=== PATIENT | female | born 1980 | race Caucasian/White ===

== ENCOUNTER 2021-09-14 07:19 | Emergency (ER) | payer BC ==
[~2021-09-14] VITALS: Ht 149.9 cm; Wt 90.9 kg
[2021-09-14] MEDS ORDERED: FAMO20TA PO (07:31)
[2021-09-14] MEDS ORDERED: LISI20TA35 PO (07:31)
[2021-09-14] MEDS ORDERED: [UNRECOGNIZED DRUG - CODE] SQ (07:31)
[2021-09-14] MEDS ORDERED: OMEP-173 PO (07:31)
[2021-09-14] MEDS ORDERED: CETI-24 PO (07:31)
[2021-09-14 07:58] LABS: BASO % 0.3 % (0.0-1.0); EOS # 0.1 10^3/uL (0.0-0.5); HEMATOCRIT 38.3 % (36.0-47.0); HEMOGLOBIN 12.9 g/dl (12.0-15.5); LYMPH # 0.5 10^3/uL (1.5-5.0); LYMPH % 3.6 % (24.0-44.0); MEAN CORPUSCULAR HEMOGLOBIN 30.1 pg (27.0-33.0); MEAN CORPUSCULAR HGB CONC 33.7 g/dl (32.0-36.5); MEAN CORPUSCULAR VOLUME 89.5 fl (80.0-96.0); MONO # 0.2 10^3/uL (0.0-0.8); MONO % 1.6 % (2.0-8.0); NEUTROPHILS % 93.2 % (36.0-66.0); PLATELET COUNT, AUTOMATED 243 10^3/uL (150-450); RED BLOOD COUNT 4.28 10^6/uL (4.00-5.40); WHITE BLOOD COUNT 12.9 10^3/uL (4.0-10.0)
[2021-09-14] MEDS ORDERED: NS 1,000 ML IV ONE (08:10)
[2021-09-14] MEDS ORDERED: KETOROLAC 30 MG/ML 1ML VIAL IV ONE (08:10)
[2021-09-14] MEDS ORDERED: ONDANSETRON 4MG/2ML VIAL IV ONE (08:10)
[2021-09-14 08:21] LABS: HCG, SERUM QUALITATIVE NEGATIVE (NEGATIVE)
[2021-09-14 08:24] LABS: ALBUMIN 4.4 GM/DL (3.2-5.2); ALT/SGPT 41 U/L (12-78); BILIRUBIN,DIRECT < 0.1 MG/DL (0.0-0.2); BILIRUBIN,TOTAL 0.4 MG/DL (0.2-1.0); BLOOD UREA NITROGEN 24 MG/DL (7-18); CALCIUM LEVEL 10.1 MG/DL (8.5-10.1); CARBON DIOXIDE LEVEL 24 MEQ/L (21-32); CHLORIDE LEVEL 107 MEQ/L (98-107); CREATININE FOR GFR 1.25 MG/DL (0.55-1.30); GLOMERULAR FILTRATION RATE 50.8 (>60); GLUCOSE, FASTING 119 MG/DL (70-100); LIPASE 83 U/L (73-393); POTASSIUM SERUM 4.7 MEQ/L (3.5-5.1); SODIUM LEVEL 139 MEQ/L (136-145); TOTAL PROTEIN 7.5 GM/DL (6.4-8.2)
[2021-09-14] MEDS ORDERED: cefTRIAXone SOD 1 GM in D5W MINI-BAG PLUS 50 ML IV ONE (09:45)
[2021-09-14 10:58] LABS: RSV AMPLIFICATION NEGATIVE (NEGATIVE)
[2021-09-14] MEDS ORDERED: CIPR-249 PO ×2 (12:00→12:06)
[2021-09-14 12:06] VITALS: BP 126/58
[2021-09-14] MEDS ORDERED: HYDR-3713 PO (12:06)
[2021-09-14] MEDS ORDERED: KETO10TAB PO (12:06)
[2021-09-14] MEDS ORDERED: REGL10TA6 PO (12:06)
[2021-09-14] MEDS ORDERED: FLOM0.4C39 PO (12:06)
[2021-09-14] MEDS ORDERED: NORCO, ANEXSIA 5/325MG TABLET (HYDROcodone/ACETAMINOPHEN) PO ONE (12:15)
== END 2021-09-14 12:34 | disposition home or self-care (01) ==
LOC: M ED 07:19
DX: N13.1 Hydronephrosis with ureteral stricture, not elsewhere classified (principal); N39.0 Urinary tract infection, site not specified; I10 Essential (primary) hypertension; Z79.899 Other long term (current) drug therapy; Z88.0 Allergy status to penicillin; Z88.1 Allergy status to other antibiotic agents; Z88.5 Allergy status to narcotic agent; Z88.8 Allergy status to other drugs, medicaments and biological substances
CPT/HCPCS: 74176; 80048; 80076; 81001; 83690; 84703; 85025; 87088; 87186; 87631; 96361; 96365; 96375; 99284; J0696; J1885; J2405